=== PATIENT | male | born 2000 | race Caucasian/White ===

== ENCOUNTER 2019-04-01 10:35 | Emergency (ER) | payer OTHER ==
[~2019-04-01] VITALS: Ht 177.8 cm; Wt 120.2 kg
[2019-04-01 10:35] VITALS: BP_SYST 147
[~2019-04-01 10:35] MED LIST: ALBMDI INH
--- NOTE | 2019-04-01 10:35 | NUR ---
BROUGHT BACK TO BED #7 AND TRIAGED. REPORT GIVEN TO SHEEBA
--- NOTE | 2019-04-01 10:40 | NUR ---
PATIENT CAME IN COMPLAINING OF CHEST PAIN 12/13 THAT HAS BEEN GOING ON FOR ABOUT A WEEK NOW. PATIENT STATES HE TOOK A BANG ENERGY DRINK AND THAT IS WHEN HE STARTED GETTING THE CHEST PAIN. PATIENT COMPLAINING OF SOME TINGLING IN ARM. PATIENT STATES PAIN DOESNT RADIATE BUT IS MORE OF PRESSURE. PATIENT COMPLAINING OF NAUSEA BUT NO VOMITING. PATIENT ALERT AND ORIENTED X4.
--- NOTE | 2019-04-01 11:05 | NUR ---
ER Dr. Bartlett at bedside examining patient.
[2019-04-01] MEDS ORDERED: ASPIRIN 81 MG TAB.CHEW PO ONE (11:30)
--- NOTE | 2019-04-01 11:48 | NUR ---
Pt ambulated in non slip shoes to bathroom. Pt returned to room and assisted to position of comfort. Will continue to monitor.
[2019-04-01 11:58] LABS: HEMATOCRIT 45.5 % (36-54); HEMOGLOBIN 15.4 g/dL (14.0-18.0); MEAN CORPUSCULAR HEMOGLOBIN 30 pg (27-31); MEAN CORPUSCULAR HGB CONC 34 % (32-36); MEAN CORPUSCULAR VOLUME 88 fL (79.0-98.0); PLATELET COUNT (AUTO) 258 K/uL (130-430); RED BLOOD CELL COUNT(AUTO) 5.19 MIL/uL (4.2-6.2); WHITE BLOOD COUNT (AUTO) 6.9 K/uL (4.5-11.0)
[2019-04-01 11:59] LABS: BASOPHILS % (AUTO) 0.7 % (0.0-2.0); EOSINOPHILS # (AUTO) 0.1 K/uL (0.0-0.4); EOSINOPHILS % (AUTO) 1.3 % (0.0-4.0); LYMPHOCYTES # (AUTO) 1.9 K/uL (1.0-5.5); LYMPHOCYTES % (AUTO) 27.6 % (20.5-51.5); MONOCYTES # (AUTO) 0.5 K/uL (0.0-1.0); MONOCYTES % (AUTO) 6.6 % (1.7-9.3); NEUTROPHILS # (AUTO) 4.4 K/uL (1.8-7.7); NEUTROPHILS % (AUTO) 63.8 % (40.0-70.0)
[2019-04-01 12:16] LABS: PROTHROMBIN TIME 10.3 SECS (9.5-12.5)
[2019-04-01 12:19] LABS: POTASSIUM 3.9 mmol/L (3.5-5.1)
[2019-04-01 12:20] LABS: ALBUMIN 4.4 g/dL (3.4-4.8); CALCIUM 9.4 mg/dL (8.4-11.0); CREATININE 0.98 mg/dL (0.55-1.30); TOTAL BILIRUBIN 0.4 mg/dL (0.0-1.0)
--- NOTE | 2019-04-01 12:59 | NUR ---
PATIENT STATES THAT HE IS FEELING BETTER.
[2019-04-01 13:52] VITALS: BP_SYST 119
--- NOTE | 2019-04-01 13:52 | NUR ---
Patient given written and verbal discharge instructions and verbalizes understanding. ER MD discussed with patient the results and treatment provided. Patient in stable condition. ID arm band removed. IV catheter removed intact and dressing applied, no active bleeding. Rx of NAPROSYN given. Patient educated on pain management and to follow up with PMD. Pain Scale 2/10 TOLERABLE. Opportunity for questions provided and answered. Medication side effect fact sheet provided.
== END 2019-04-01 13:52 | disposition home or self-care (01) ==
LOC: SED 10:35
DX: R07.89 Other chest pain (principal); R03.0 Elevated blood-pressure reading, without diagnosis of hypertension; J45.909 Unspecified asthma, uncomplicated; Z86.79 Personal history of other diseases of the circulatory system
CPT/HCPCS: 36415; 71045; 80053; 82550-TC; 83880; 84484; 85025; 85379; 85610-TC; 85730-TC; 93005; 99284

== ENCOUNTER 2019-08-31 13:51 | Emergency (ER) | payer OTHER ==
[~2019-08-31] VITALS: Ht 180.3 cm; Wt 115.7 kg
[2019-08-31 13:59] VITALS: BP_SYST 133
--- NOTE | 2019-08-31 14:03 | NUR ---
Patient to ER bed 05 to gown for evaluation. Side rails up.
--- NOTE | 2019-08-31 14:05 | NUR ---
Patient arrived in the ED accompanied by his dad, c/o 04/14 pain on left lower leg that started yesterday. Patient stated he fell and landed on his back yesterday. Denied any head injury or loss of consciosness. Denied any fevers or chills. Patient is alert and oriented x4, respirations even and unlabored, speaking in full sentences and ambulating with a steady gait. VS WNL. Denied any respiratory distress at this time. Lung sounds clear to auscultation on all lung kitchen, bowel sounds present and active on all 4 quadrants. Father at bedside. Instructed patient to notify ED staff for any change in condition or worsening of symptoms while waiting to be seen by the provider. Patient verbalized understanding.
--- NOTE | 2019-08-31 14:07 | NUR ---
KERRY Lee at bedside examining the patient. Addendum: 08/31/19 at 1411 by [email or web address] KERRY Lee at bedside examining the patient.
[2019-08-31] MEDS ORDERED: IBUPROFEN 600 MG TABLET PO ONE (14:15)
--- NOTE | 2019-08-31 14:17 | NUR ---
Administered 600mg of Ibuprofen PO as ordered by Clari Lee. Patient tolerated the medication well.
--- NOTE | 2019-08-31 14:23 | NUR ---
X-ray done at bedside. Patient tolerated the procedure well.
--- NOTE | 2019-08-31 15:03 | NUR ---
Patient given written and verbal discharge instructions and verbalizes understanding. ER MD discussed with patient the results and treatment provided. Patient in stable condition. ID arm band removed. Rx of Bacitracin and Motrin given. Patient educated on pain management and to follow up with PMD. Pain Scale 0/10. Opportunity for questions provided and answered. Medication side effect fact sheet provided.
[2019-08-31 15:18] VITALS: BP_SYST 133
== END 2019-08-31 15:03 | disposition home or self-care (01) ==
LOC: SED 13:51
DX: S80.12XA Contusion of left lower leg, initial encounter (principal); J45.909 Unspecified asthma, uncomplicated; R56.9 Unspecified convulsions; R03.0 Elevated blood-pressure reading, without diagnosis of hypertension; Z79.899 Other long term (current) drug therapy; W10.2XXA Fall (on)(from) incline, initial encounter; Y93.89 Activity, other specified; Y92.89 Other specified places as the place of occurrence of the external cause; Y99.8 Other external cause status
CPT/HCPCS: 73590-TC; 99283

== ENCOUNTER 2022-08-31 17:00 | Emergency (ER) | payer OTHER ==
[~2022-08-31] VITALS: Ht 182.9 cm; Wt 98.9 kg
[2022-08-31 17:10] VITALS: BP_SYST 130
--- NOTE | 2022-08-31 19:55 | NUR ---
seasonal clerk, pt LWBS.
== END 2022-08-31 19:55 | disposition left against medical advice (07) ==
LOC: SED 17:00
DX: R05.9 Cough, unspecified (principal); R50.9 Fever, unspecified; R11.10 Vomiting, unspecified; Z20.822 Contact with and (suspected) exposure to COVID-19; Z53.21 Procedure and treatment not carried out due to patient leaving prior to being seen by health care provider
CPT/HCPCS: 36415